=== PATIENT | male | born 1985 | race American Indian/Alaskan Native ===

== ENCOUNTER 2023-12-04 14:04 | Emergency (ER) | payer OTHER ==
[~2023-12-04] VITALS: Ht 182.9 cm; Wt 92.6 kg
[~2023-12-04 14:04] MED LIST: CLINDAMYCIN HC300 MG PO
[2023-12-04] MEDS ORDERED: ondansetron HCL 4 MG/2 ML VIAL IV ONE (14:15)
[2023-12-04] MEDS ORDERED: SODIUM CHLORIDE 0.9% 1,000 ML IV ONE (14:15)
[2023-12-04] MEDS ORDERED: droPERidol 5 MG/2 ML VIAL IV ONE (14:15)
[2023-12-04 14:29] LABS: BASOPHILS 0.5 % (0-2); EOSINOPHILS 0.8 % (0-6); HEMATOCRIT 44.9 % (35.0-50.0); HEMOGLOBIN 15.7 g/dL (12.0-18.0); LYMPHOCYTES 10.6 % (24-44); MCH 31.9 (27-36); MCV 90.9 fl (81-99); MONOCYTES 4.9 % (0-12); NEUTROPHILS 83.2 % (39-80); PLATELET COUNT 315 K/uL (140-440); RBC 4.93 M/ul (4.3-5.7); RDW 13.1 (10.5-15.0)
[2023-12-04 14:46] LABS: ALBUMIN 4.2 g/dL (3.4-5.0); ALBUMIN/GLOBULIN RATIO 1.24 (1.1-2.4); ANION GAP 15.6 (7-21); BILIRUBIN, TOTAL 0.9 ng/dL (0.2-1.0); BUN/CREATININE RATIO 12.84 (6.0-28.6); CALCIUM 8.9 mg/dL (8.5-10.1); CREATININE, SERUM 1.09 mg/dL (0.70-1.30); POTASSIUM 3.6 mmol/L (3.5-5.1); PROTEIN, TOTAL 7.6 g/dL (6.4-8.2)
[2023-12-04 15:18] LABS: BILIRUBIN, URINE NEGATIVE (negative); BLOOD/HGB, URINE NEGATIVE (Negative); KETONE, URINE NEGATIVE (Negative); LEUK ESTERASE, URINE NEGATIVE (negative); NITRITE, URINE NEGATIVE (negative)
[2023-12-04] MEDS ORDERED: PANTOPRAZOLE SODIUM 40 MG TABEC PO ONE (15:45)
[2023-12-04] MEDS ORDERED: ONDANSETRON ODT8 MG PO (15:55)
[2023-12-04 16:13] VITALS: BP 138/92
== END 2023-12-04 16:10 | disposition home or self-care (01) ==
LOC: ED 14:04
PROVIDERS: Emergency Medicine
DX: K29.01 Acute gastritis with bleeding (principal); Z88.0 Allergy status to penicillin
CPT/HCPCS: 36415; 80053; 81003; 83690; 85025; 96374; 96375; 99284-25; A9270; J1790; J2405; J7030